=== PATIENT | female | born 1985 | race Caucasian/White ===

== ENCOUNTER 2017-12-05 18:57 | Emergency (ER) | payer MEDICAID | END 2017-12-05 23:10 | disposition home or self-care (01) | LOC: FTE 18:57 | DX: R21 Rash and other nonspecific skin eruption (principal); I10 Essential (primary) hypertension | CPT/HCPCS: 99283 ==

== ENCOUNTER 2018-10-10 15:57 | Emergency (ER) | payer MEDICAID | END 2018-10-10 17:25 | disposition home or self-care (01) | LOC: FTE 15:57 | DX: K21.9 Gastro-esophageal reflux disease without esophagitis (principal); I10 Essential (primary) hypertension | CPT/HCPCS: 71046; 99283-25 ==